=== PATIENT | male | born 1950 | race Caucasian/White ===

== ENCOUNTER 2019-08-19 10:00 | Day surgery (SDC) | payer MEDICARE, OTHER, SELFPAY ==
[2019-08-07 07:56] VITALS: BMI 24.0
[2019-08-19] VITALS (9 sets, daily range): BP systolic 106–134; BP diastolic 62–77; PULSE 66–79; RESP 12–16; TEMP 36.1–36.9; O2SAT 95–98; BMI 24.0
[2019-08-19] MEDS: LACTATED RINGERS 1,000 ML 100 ML IV ×2 (11:16→14:57)
--- NOTE | 2019-08-19 13:23 | PM.PREOP ---
Pre-operative Note Interval Note History & Physical reviewed/Exam performed by Physician: Yes Changes to H&P: No
[2019-08-19] MEDS: CEFAZOLIN 2 GM/100 ML FROZ.PIGGY IV (13:25)
--- NOTE | 2019-08-19 14:01 | SUR.OPER ---
Supine on padded OR bed, head on pillow, arm padded and tucked at side, legs uncrossed, safety belt at thigh, tape over blanket over lower legs .
[2019-08-19] MEDS: BUPIVACAINE 0.25% W/ EPI (PF) 10 ML VIAL 20 ML INJ (14:12)
[2019-08-19] MEDS: BUPIVACAINE LIPOSOME 266 MG/20 ML VIAL INJ (15:28)
--- NOTE | 2019-08-19 15:52 | P.OP_ITS ---
Operative Date/Time/Diagnoses Date of procedure: 08/19/19 Time of procedure: 15:52 Pre-op diagnosis: right, possible left inguinal hernia Post-op diagnosis: other (right indirect and direct inguinal hernia defects, no left inguinal hernia) Procedure & Clinicians Procedure: laparoscopic right inguinal hernia repair with mesh, removal of spermatic cord lipoma Same procedure as scheduled: Yes Indications: symptomatic right inguinal hernia Surgeon: Alisa Tran Yes if Unassisted: Yes Anesthesia Type: General Operative Notes Findings: Deep direct and indirect right inguinal hernias, right spermatic cord lipoma, no evidence of left inguinal hernia Specimen(s): none sent Prosthetic devices, grafts, tissues, transplants, or devices: Large 3D max inguinal hernia mesh, datapower developer: Bard Estimated Blood Loss (mL): 1 Blood products transfused: none Procedure in detail: The patient was brought into the operating room and placed supine on the OR table. Sequential compression devices were placed on both legs and turned on. Appropriate perioperative antibiotics were given prior to the start of surgery. General anesthesia was induced the patient was intubated. A Angel catheter was placed sterilely in the bladder. The abdomen was prepped and draped in sterile fashion. Surgical time-out was conducted. Local anesthetic was injected under the skin just superior to the umbilicus and a 5 mm vertical incision was made at this site. The umbilical stalk was grasped with a Jodi and elevated. A Veress needle was passed through the fascia into proper position. The position was tested with a saline drop test which was appropriate for intra-abdominal Veress needle placement. The abdomen was then insufflated in the usual fashion. Once insufflated to 15 mm Hg the Veress needle was removed and a 5 mm optical trocar was placed under direct vision using a 5 mm 30 degree scope. Once the camera was inside the abdomen I took a look around. There was no injury from port placement. Two additional ports were placed in a similar fashion in the right and left mid clavicular line at the level of the umbilicus, one handbreadth lateral to the umbilicus. The umbilical port was upsized to a 10mm port. Attention was turned to the pelvis, and both inguinal regions were evaluated. On the left there was no evidence of hernia either in the direct, indirect or femoral positions. On the right side there were deep hernia defects in the direct and indirect space, with heavy scar. Local anesthetic was in the infiltrated into the abdominal wall using 0.25% Marcaine with epi, in the region of the expected peritoneal incision. Metzenbaum scissors attached to cautery were then used to incise the peritoneum transversely from the midline laterally to the ASIS, 10 cm superior to the inguinal hernia defect. The peritoneal flap was developed down to the inguinal hernia defects. When I reached the defects I found that there were spermatic cord lipomas in the indirect defect. There was also preperitoneal fat plugged in the direct defect. Both of these fatty masses were removed from the hernia defects, and ligated with an 0 PDS endoloop. The spermatic cord lipoma was then divided with cautery and removed from the abdomen. Once the flap had been fully developed and the cord structures were completely exposed, and both defects had been fully evaluated, I then exposed the pubic tubercle and push down the bladder so that there was space for good mesh placement. A large 3DMax macro porous mesh was then brought into the field. I placed it through the 10 mm port and positioned it within the surgical defect covering both hernia defects with 5 cm overlap in each direction. I then secured the mesh to the pubic tubercle in 2 locations using a Bard surgical Tacker. I then secured it to the abdominal wall at the superior edge of the mesh, far away from the triangle of doom and the triangle of pain. These tacks were placed avoiding the epigastric vessels as well. Once the mesh was secured in place I brought up the peritoneal flap. There was no clam shelling or bending of the mesh when the peritoneal flap was brought up. I then secured the peritoneum up to the abdominal wall using the Bard surgical Tacker, with dissolvable tacks. There was no gapping of the peritoneal flap or exposed mesh. The indirect hernia sac was large and was hanging off of the peritoneal flap, at risk for involuting and entrapping bowel. So I placed another endoloop on the hernia sac and snugged it down so that the sac could not emilie back into itself. At this point the mesh was well positioned, secured, and well covered. There was no exposed mesh, no bleeding, and the peritoneal flap was in good position. I then infiltrated the abdominal wall in the area of dissection with an additional 20 mL of Exparel, combined with the remaining local anesthetic for total of 60 mL of 0.25% Marcaine for the case. At this point the umbilical port site was closed with 0 Vicryl suture in the fascia using a Pablito-Cecilio suture Passer. Insufflation was then removed from the abdomen, and the umbilical port site was closed with 3-0 Vicryl in the subcutaneous layers, and 4 Monocryl in the skin. The other 2 port sites were closed with 4 Monocryl in the skin. Each port site was sealed with Dermabond. Local anesthetic was given at each of the port sites and in the fascia. This concluded the procedure. At this point the needle sponge and instrument counts were correct. Patient was awakened from anesthesia and extubated. The Angel catheter was removed, and the testicles were brought down to ensure they were in proper position. He was transferred to the postanesthesia care unit in stable condition.
[2019-08-19] MEDS: KETOROLAC 30 MG/ML VIAL IV (15:53)
--- NOTE | 2019-08-19 16:04 | SUR.PHASEI ---
Assisted patient with urinal. No urine produced. Reminded patient that garza catheter was discontinued prior to entering recovery. V/U. Per surgeon, patient may be discharged home without voiding. If not able to urinate in 8 hours, the patient will need to return to hospital.
--- NOTE | 2019-08-19 16:36 | SUR.PHASEI ---
Prescription given to .
[2019-08-19] MEDS: OXYCODONE/ACETAMINOPHEN 5/325 TABLET 1 TAB PO (16:56)
== END 2019-08-19 17:31 | disposition home or self-care (01) ==
PROVIDERS: PCP Nurse Practitioner Family; Visit Provider Surgery
PROC: (CPT 49650; principal; 2019-08-19 12:45)
DX: K40.90 Unilateral inguinal hernia, without obstruction or gangrene, not specified as recurrent (principal); E03.9 Hypothyroidism, unspecified; K59.09 Other constipation; D17.6 Benign lipomatous neoplasm of spermatic cord
CPT/HCPCS: 49650; C1781; C9290; J0690; J1100; J1885; J2250; J2405; J2704; J3010